=== PATIENT | male | born 1945 | race Caucasian/White ===

== ENCOUNTER 2018-03-05 06:19 | Day surgery (SDC) | payer MEDICARE ==
[~2018-03-05] VITALS: Ht 175.3 cm; Wt 76.4 kg
[~2018-03-05 06:19] MED LIST: LOVA20TA2 PO; PRIM250T48 PO
[2018-03-05 06:45] VITALS: BP 153/93
[2018-03-05] MEDS ORDERED: normal saline 1000ml 1,000 ML IV PRN (06:50)
[2018-03-05] MEDS ORDERED: CALC0.2536 PO (06:52)
[2018-03-05] MEDS ORDERED: CHOL200012 PO (06:52)
[2018-03-05] MEDS ORDERED: sodium bicarb PO (06:52)
[2018-03-05 07:05] LABS: BASOPHILS % (AUTO) 0.6 % (0-1); EOSINOPHILS # (AUTO) 0.1 X10'3 (0-0.9); EOSINOPHILS % (AUTO) 0.9 % (0-6); HEMATOCRIT 33.9 % (42.0-52.0); HEMOGLOBIN 11.7 g/dl (14.0-17.9); LYMPHOCYTES # (AUTO) 0.3 X10'3 (1.1-4.8); LYMPHOCYTES % (AUTO) 5.2 % (21-51); MEAN CORPUSCULAR HEMOGLOBIN 33.8 PG (27.0-31.0); MEAN CORPUSCULAR HGB CONC 34.5 % (33.0-36.5); MEAN CORPUSCULAR VOLUME 97.9 FL (78-98); MEAN PLATELET VOLUME 8.5 FL (7.4-10.4); MONOCYTES # (AUTO) 0.4 X10'3 (0-0.9); MONOCYTES % (AUTO) 7.4 % (2-12); NEUTROPHILS # (AUTO) 4.8 X10'3 (1.8-7.7); NEUTROPHILS % (AUTO) 85.9 % (42-75); PLATELET COUNT 116 X10'3 (140-440); RED BLOOD COUNT 3.47 X10'6 (4.70-6.10); RED CELL DISTRIBUTION WIDTH 14.9 % (11.5-14.5); WHITE BLOOD COUNT 5.6 X10'3 (4.5-11.0)
[2018-03-05] MEDS ORDERED: heparin 1,000 units/ml 10ml inj ICATH ONE (07:50)
[2018-03-05] MEDS ORDERED: fentaNYL/PF 50MCG/1 ML 2ML syringe IV PRN (07:50)
[2018-03-05] MEDS ORDERED: midazolam 2 mg/2 ml injection IV PRN (07:50)
[2018-03-05] MEDS ORDERED: heparin 1,000unit/ml 10ml vial 10 ML ONE (07:50)
[2018-03-05] MEDS ORDERED: LIDOcaine 1%/PF 5ML 10 MG/ML VIAL SQ ONE (07:50)
[2018-03-05] MEDS ORDERED: LIDOcaine 1%/PF 5ML 10 MG/ML VIAL ONE (07:50)
[2018-03-05] MEDS ORDERED: normal saline 1000ml 1,000 ML IV SCH (07:56)
[2018-03-05] MEDS ORDERED: midazolam 2 mg/2 ml injection ONE (08:08)
[2018-03-05] MEDS ORDERED: fentaNYL/PF 50MCG/1 ML 2ML syringe ONE (08:09)
[2018-03-05 09:00] VITALS: BP 153/93
[2018-03-05 09:15] VITALS: BP 163/96
[2018-03-05 09:30] VITALS: BP 160/67
[2018-03-05 09:45] VITALS: BP 127/68
[2018-03-05 10:00] VITALS: BP 130/70
== END 2018-03-05 10:27 | disposition home or self-care (01) ==
LOC: SSTAY O 06:19
PROVIDERS: ATTEND Radiology Diagnostic Radiology
DX: I12.9 Hypertensive chronic kidney disease with stage 1 through stage 4 chronic kidney disease, or unspecified chronic kidney disease (principal); N18.3 Chronic kidney disease, stage 3 (moderate); E11.22 Type 2 diabetes mellitus with diabetic chronic kidney disease; E78.5 Hyperlipidemia, unspecified; Z87.891 Personal history of nicotine dependence; Z98.41 Cataract extraction status, right eye; Z98.42 Cataract extraction status, left eye; Z79.899 Other long term (current) drug therapy
CPT/HCPCS: 36415; 36558; 76937; 77001; 85025; 99152; 99153; A9270; C1750; C1894; J1644; J2001; J2250; J3010; J7030; A4620

== ENCOUNTER 2018-04-06 08:48 | Day surgery (SDC) | payer MEDICARE ==
[~2018-04-06] VITALS: Ht 177.8 cm; Wt 76.8 kg
[~2018-04-06 08:48] MED LIST changes: +CALC0.2536 PO; +CHOL200012 PO; -PRIM250T48 PO; +sodium bicarb PO
[2018-04-06 09:28] LABS: BASOPHILS % (AUTO) 0.7 % (0-1); EOSINOPHILS # (AUTO) 0.1 X10'3 (0-0.9); EOSINOPHILS % (AUTO) 1.9 % (0-6); HEMATOCRIT 29.8 % (42.0-52.0); HEMOGLOBIN 9.9 g/dl (14.0-17.9); LYMPHOCYTES # (AUTO) 0.7 X10'3 (1.1-4.8); LYMPHOCYTES % (AUTO) 22.7 % (21-51); MEAN CORPUSCULAR HEMOGLOBIN 34.1 PG (27.0-31.0); MEAN CORPUSCULAR HGB CONC 33.4 % (33.0-36.5); MEAN CORPUSCULAR VOLUME 102.1 FL (78-98); MEAN PLATELET VOLUME 7.3 FL (7.4-10.4); MONOCYTES # (AUTO) 0.3 X10'3 (0-0.9); MONOCYTES % (AUTO) 9.2 % (2-12); NEUTROPHILS # (AUTO) 1.9 X10'3 (1.8-7.7); NEUTROPHILS % (AUTO) 65.5 % (42-75); PLATELET COUNT 179 X10'3 (140-440); RED BLOOD COUNT 2.91 X10'6 (4.70-6.10); RED CELL DISTRIBUTION WIDTH 17.4 % (11.5-14.5); WHITE BLOOD COUNT 2.9 X10'3 (4.5-11.0)
[2018-04-06 09:36] LABS: INR 1.1 INR
[2018-04-06 09:38] VITALS: BP 183/106
[2018-04-06 09:39] LABS: ALBUMIN 3.3 G/DL (3.4-5.0); ANION GAP 12 (8-16); BLOOD UREA NITROGEN 35 MG/DL (7-18); BUN/CREATININE RATIO 7.4 (5.4-32.0); CALCIUM 9.3 MG/DL (8.5-10.1); CHLORIDE 108 MMOL/L (99-107); CREATININE 4.72 MG/DL (0.60-1.10); POTASSIUM 4.2 MMOL/L (3.5-5.1); SODIUM 143 MMOL/L (135-145); eGFR 12 ML/MIN
[2018-04-06 09:40] LABS: GLUCOSE 100 MG/DL (70-104)
[2018-04-06] MEDS ORDERED: Cefazolin 2GM/100ML NS IVPB 100 ML IV ONE (09:40)
[2018-04-06] MEDS ORDERED: normal saline 1000ml 1,000 ML IV SCH (09:40)
[2018-04-06 09:44] LABS: ANISOCYTOSIS 1+; PLATELET ESTIMATE NORMAL; TOTAL CELLS COUNTED 100
[2018-04-06] MEDS ORDERED: LIDOcaine 1%/PF 5ML 10 MG/ML VIAL ONE ×2 (10:18→11:12)
[2018-04-06] MEDS ORDERED: FOLI0.8T39 (10:20)
[2018-04-06] MEDS ORDERED: heparin sodium, porcine/PF 100unit/ml 5ML syringe ONE (10:45)
[2018-04-06] MEDS ORDERED: midazolam 2 mg/2 ml injection ONE (10:45)
[2018-04-06] MEDS ORDERED: fentaNYL/PF 50MCG/1 ML 2ML syringe ONE (10:46)
[2018-04-06] MEDS ORDERED: heparin 1,000unit/ml 10ml vial 10 ML ONE (10:50)
[2018-04-06 11:50] VITALS: BP 170/111
[2018-04-06 12:00] VITALS: BP 165/95
[2018-04-06 12:15] VITALS: BP 165/101
[2018-04-06 12:30] VITALS: BP 170/98
== END 2018-04-06 13:05 | disposition home or self-care (01) ==
LOC: SSTAY O 08:48
PROVIDERS: ATTEND Radiology Diagnostic Radiology
DX: T82.49XA Other complication of vascular dialysis catheter, initial encounter (principal); Y83.8 Other surgical procedures as the cause of abnormal reaction of the patient, or of later complication, without mention of misadventure at the time of the procedure; Y92.89 Other specified places as the place of occurrence of the external cause; E11.22 Type 2 diabetes mellitus with diabetic chronic kidney disease; I12.9 Hypertensive chronic kidney disease with stage 1 through stage 4 chronic kidney disease, or unspecified chronic kidney disease; N18.3 Chronic kidney disease, stage 3 (moderate); E78.5 Hyperlipidemia, unspecified; Z87.891 Personal history of nicotine dependence; Z99.2 Dependence on renal dialysis; Z98.41 Cataract extraction status, right eye; Z98.42 Cataract extraction status, left eye; Z98.890 Other specified postprocedural states; Z79.899 Other long term (current) drug therapy
CPT/HCPCS: 36415; 36581; 77001; 80048; 85025; 85610; 99152; 99153; A9270; C1750; C1769; J0690; J1642; J1644; J2001; J2250; J3010; J7030

== ENCOUNTER → 2019-12-16 | Emergency (ER) | payer MEDICARE ==
[~2019-12-16] VITALS: Ht 177.8 cm; Wt 71.0 kg
[~2019-12-16] MED LIST changes: +FOLI0.8T39; +MULT1TAB74 PO; +PHEN51CR RC; +loperamide 2mg capsule PO ONE; +normal saline 1000ML IV soln IV ONE; +pantoprazole 40mg Tablet.DR PO ONE
[2019-12-16 20:32] VITALS: BP 108/52
[2019-12-16 21:20] LABS: BASOPHILS % (AUTO) 0.1 % (0-1); EOSINOPHILS % (AUTO) 0 % (0-6); HEMATOCRIT 25.4 % (42.0-52.0); HEMOGLOBIN 8.5 g/dl (14.0-17.9); LYMPHOCYTES # (AUTO) 0.4 X10'3 (1.1-4.8); LYMPHOCYTES % (AUTO) 5.9 % (21-51); MEAN CORPUSCULAR HEMOGLOBIN 34.7 PG (27.0-31.0); MEAN CORPUSCULAR HGB CONC 33.4 g/dL (33.0-36.5); MEAN CORPUSCULAR VOLUME 103.7 FL (78-98); MEAN PLATELET VOLUME 7.8 FL (7.4-10.4); MONOCYTES # (AUTO) 0.5 X10'3 (0-0.9); MONOCYTES % (AUTO) 7.8 % (2-12); NEUTROPHILS # (AUTO) 5.3 X10'3 (1.8-7.7); NEUTROPHILS % (AUTO) 86.2 % (42-75); PLATELET COUNT 131 X10'3 (140-440); RED BLOOD COUNT 2.45 X10'6 (4.70-6.10); RED CELL DISTRIBUTION WIDTH 17.1 % (11.5-14.5); WHITE BLOOD COUNT 6.1 X10'3 (4.5-11.0)
[2019-12-16 21:30] LABS: ALANINE AMINOTRANSFERASE 28 U/L (12-78); ALBUMIN 2.6 G/DL (3.4-5.0); ALBUMIN/GLOBULIN RATIO 0.9 (1.1-1.5); ALKALINE PHOSPHATASE 46 IU/L (46-116); ANION GAP 16 (8-16); ASPARTATE AMINO TRANSFERASE 16 U/L (10-37); BILIRUBIN,TOTAL 0.7 MG/DL (0.1-1.0); BLOOD UREA NITROGEN 61 MG/DL (7-18); BUN/CREATININE RATIO 16.4 (5.4-32.0); CALCIUM 8.8 MG/DL (8.5-10.1); CHLORIDE 95 MMOL/L (99-107); CREATININE 3.71 MG/DL (0.60-1.10); GLUCOSE 139 MG/DL (70-104); LIPASE 65 U/L (73-393); POTASSIUM 3.5 MMOL/L (3.5-5.1); SODIUM 133 MMOL/L (135-145); TOTAL PROTEIN 5.6 G/DL (6.4-8.2); eGFR 16 ML/MIN
[2019-12-16 21:31] LABS: CLARITY,URINE CLEAR (Clear); COLOR,URINE YELLOW (Yellow); GLUCOSE, URINE NEGATIVE (Neg); KETONES,URINE 15 mg/dl (Neg); LEUKOCYTE ESTERASE ,URINE NEGATIVE (Neg); NITRITES, URINE NEGATIVE (Neg); OCCULT BLOOD,URINE NEGATIVE (Neg); PH,URINE 5.5 (4.8-8.0); PROTEIN,URINE 30 mg/dl (Neg)
[2019-12-16 21:41] LABS: UA COLLECTION TYPE STRAIGHT CATH
[2019-12-16 21:42] LABS: BACTERIA,URINE FEW /HPF (Neg); RBC,URINE NONE SEEN /HPF (0-2); SQUAMOUS EPITHELIAL CELL,UR FEW /LPF (FEW); WBC,URINE NONE SEEN /HPF (0-4)
[2019-12-16 21:43] LABS: AMORPHOUS URATES 1+
--- NOTE | 2019-12-16 22:39 | NUR ---
CALLED [employer] FOR [employer] [facility] [employer]NAGER [employer]
== END | disposition home or self-care (01) ==
LOC: ER 20:28
DX: R19.7 Diarrhea, unspecified (principal); N18.9 Chronic kidney disease, unspecified; D53.9 Nutritional anemia, unspecified; K62.89 Other specified diseases of anus and rectum; I12.9 Hypertensive chronic kidney disease with stage 1 through stage 4 chronic kidney disease, or unspecified chronic kidney disease; E11.22 Type 2 diabetes mellitus with diabetic chronic kidney disease; Z79.899 Other long term (current) drug therapy
CPT/HCPCS: 36415; 80053; 81001; 83690; 85025; 99284

== ENCOUNTER 2020-04-10 06:33 | Day surgery (SDC) | payer MEDICARE ==
[~2020-04-10] VITALS: Ht 165.1 cm; Wt 66.7 kg
[~2020-04-10 06:33] MED LIST changes: +MULT-620 PO; -MULT1TAB74 PO; -PHEN51CR RC; +PHEN51CR24 RC; -loperamide 2mg capsule PO ONE; -normal saline 1000ML IV soln IV ONE; -pantoprazole 40mg Tablet.DR PO ONE
[2020-04-10 07:00] VITALS: BP 97/62
[2020-04-10] MEDS ORDERED: normal saline 1000ml 1,000 ML IV SCH ×2 (07:05→07:15)
[2020-04-10 07:30] LABS: BASOPHILS % (AUTO) 0.6 % (0-1); EOSINOPHILS # (AUTO) 0.2 X10'3 (0-0.9); HEMATOCRIT 38.9 % (42.0-52.0); HEMOGLOBIN 12.6 g/dl (14.0-17.9); LYMPHOCYTES # (AUTO) 1.2 X10'3 (1.1-4.8); LYMPHOCYTES % (AUTO) 18.4 % (21-51); MEAN CORPUSCULAR HEMOGLOBIN 30.4 PG (27.0-31.0); MEAN CORPUSCULAR HGB CONC 32.5 g/dL (33.0-36.5); MEAN CORPUSCULAR VOLUME 93.5 FL (78-98); MEAN PLATELET VOLUME 8.1 FL (7.4-10.4); MONOCYTES # (AUTO) 0.5 X10'3 (0-0.9); MONOCYTES % (AUTO) 7.5 % (2-12); NEUTROPHILS # (AUTO) 4.7 X10'3 (1.8-7.7); NEUTROPHILS % (AUTO) 70.5 % (42-75); PLATELET COUNT 253 X10'3 (140-440); RED BLOOD COUNT 4.16 X10'6 (4.70-6.10); RED CELL DISTRIBUTION WIDTH 14.9 % (11.5-14.5); WHITE BLOOD COUNT 6.7 X10'3 (4.5-11.0)
[2020-04-10 07:40] LABS: ALBUMIN 3.3 G/DL (3.4-5.0); ANION GAP 9 (8-16); BLOOD UREA NITROGEN 97 MG/DL (7-18); BUN/CREATININE RATIO 27.2 (5.4-32.0); CHLORIDE 102 MMOL/L (99-107); CREATININE 3.56 MG/DL (0.60-1.10); GLUCOSE 123 MG/DL (70-104); POTASSIUM 3.9 MMOL/L (3.5-5.1); SODIUM 137 MMOL/L (135-145); TOTAL CARBON DIOXIDE 25.7 MMOL/L (24-32); eGFR 17 ML/MIN
[2020-04-10] MEDS ORDERED: tPA-cathflo 2 MG/2 ml IV flush ONE ×3 (08:09→11:57)
[2020-04-10 08:20] VITALS: BP 97/62
[2020-04-10] MEDS ORDERED: PANT20TA3 PO (08:32)
[2020-04-10] MEDS ORDERED: TRAM50TA2 PO (08:32)
[2020-04-10] MEDS ORDERED: SENN-25 PO (08:32)
[2020-04-10] MEDS ORDERED: ACET-1008 PO (08:32)
[2020-04-10] MEDS ORDERED: OLAN5TAB5 PO (08:32)
[2020-04-10] MEDS ORDERED: LIDOcaine 1%/PF 5ML 10 MG/ML VIAL ONE (10:43)
[2020-04-10] MEDS ORDERED: midazolam 2 mg/2 ml injection ONE (10:43)
[2020-04-10] MEDS ORDERED: iohexol 300mg/ml 100ml inj. ONE ×2 (10:44→12:14)
[2020-04-10] MEDS ORDERED: fentaNYL/PF 50MCG/1 ML 2ML syringe ONE (10:44)
[2020-04-10] MEDS ORDERED: heparin 1,000 UNITS/NS 500ml 500 ML ONE (10:44)
[2020-04-10] MEDS ORDERED: methylPREDNISolone sod succ 125mg/2ml vial ONE (11:38)
[2020-04-10] MEDS ORDERED: diphenhydrAMINE 50 mg/ml inj ONE (11:38)
[2020-04-10] MEDS ORDERED: heparin 1,000unit/ml 10ml vial 10 ML ONE (11:57)
[2020-04-10 12:41] VITALS: BP 149/84
[2020-04-10 13:00] VITALS: BP 121/76
[2020-04-10 13:15] VITALS: BP 115/72
--- NOTE | 2020-04-10 13:50 | NUR ---
Patient discharged via [employer] gurney. 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
== END 2020-04-10 13:20 | disposition home or self-care (01) ==
LOC: SSTAY O 06:33
PROVIDERS: ATTEND Radiology Vascular & Interventional Radiology
DX: T82.868A Thrombosis due to vascular prosthetic devices, implants and grafts, initial encounter (principal); E11.22 Type 2 diabetes mellitus with diabetic chronic kidney disease; I12.0 Hypertensive chronic kidney disease with stage 5 chronic kidney disease or end stage renal disease; N18.5 Chronic kidney disease, stage 5; Z87.11 Personal history of peptic ulcer disease; Z88.8 Allergy status to other drugs, medicaments and biological substances; Z72.89 Other problems related to lifestyle; Z79.899 Other long term (current) drug therapy; Y83.2 Surgical operation with anastomosis, bypass or graft as the cause of abnormal reaction of the patient, or of later complication, without mention of misadventure at the time of the procedure; Y92.89 Other specified places as the place of occurrence of the external cause
CPT/HCPCS: 36415; 36905; 80048; 85025; 85610; 99152; 99153; C1725; C1769; C1894; J1200; J1644; J2250; J2930; J2997; J3010; J7030; Q9967